=== PATIENT | female | born 1975 | race Caucasian/White ===

== ENCOUNTER 2017-03-14 07:16 | Day surgery (SDC) | payer BC, OTHER ==
[2017-03-11 12:33] VITALS: BMI 28.7
[2017-03-14] MEDS ORDERED: MIDAZOLAM HCL 2 MG/2 ML SINGLE DOSE VIAL ONE (09:11)
[2017-03-14] MEDS ORDERED: PROPOFOL 20 ML ONE (09:22)
[2017-03-14] MEDS ORDERED: DEXAMETHASONE SOD PHOSPHATE 4 MG/1 ML VIAL ONE (10:01)
[2017-03-14] MEDS ORDERED: ONDANSETRON 4 MG/2 ML VIAL ONE (10:01)
[2017-03-14] MEDS ORDERED: KETOROLAC TROMETHAMINE 30 MG/1 ML VIAL ONE (10:01)
[2017-03-14] MEDS ORDERED: oxyCODONE HCL 5 MG TABLET PO PRN (10:22)
[2017-03-14] MEDS ORDERED: LACTATED RINGERS SOLUTION 1,000 ML IV SCH ×2 (10:30)
[2017-03-14] MEDS ORDERED: IBUPROFEN 600 MG TABLET (FP) PO PRN (10:35)
[2017-03-14] MEDS ORDERED: ONDANSETRON 4 MG/2 ML VIAL IVPUSH PRN (10:48)
[2017-03-14] MEDS ORDERED: IBUPROFEN 600 MG TABLET (FP) PO ONE (11:14)
[2017-03-14 11:22] VITALS: TEMP 97.9
[2017-03-14] MEDS ORDERED: ACETAMINOPHEN 325 MG TABLET (FP) PO ONE (12:00)
[2017-03-14 12:01] VITALS: PULSE 80
[2017-03-14 12:35] VITALS: BP 135/76
--- NOTE | 2017-03-14 13:21 | OP ---
DATE OF OPERATION: 03/14/2017 PREOPERATIVE DIAGNOSIS: Endometrial polyp POSTOPERATIVE DIAGNOSIS: Normal endometrial cavity. PROCEDURE: Diagnostic hysteroscopy and a dilatation and curettage. COMPLICATIONS: None. SURGEON: Dr. Jj Villafana. PRINTING ROLLER POLISHER AND FELLOW: Dr. Kasper RESIDENT: Dr. Castañeda. ANESTHESIA: General. FLUID DEFICIT: Normal saline, 250 mL. URINE OUTPUT: 600. PROCEDURE FOLLOWS: Patient was taken to the operating room where general anesthesia was found to be adequate. She was placed in dorsal lithotomy position, prepped and draped in a normal sterile fashion. A pelvic examination revealed an anteverted uterus. A Ahmadi catheter was inserted. A speculum was then inserted, and the anterior lip of the cervix was grasped with a single-tooth tenaculum. The cervix was then entered visually using a diagnostic hysteroscope. Careful inspection of the cavity revealed normal endometrial findings, potentially some thickened folds of the endometrium posteriorly. No discrete polyps seen. The scope was then removed. We proceeded with sharp curettage. The products were sent for pathology. Of note, there was some endometrium that appeared to be slightly injected, as well, and thus, we requested that CD 138 were sent with pathology to rule out endometritis. All sponge, lap, and instrument counts were correct x2, and the patient was taken to the recovery room in stable condition. This operative note was completed by Dr. Godwin. JJ VILLAFANA M.D. [id number]
--- NOTE | 2017-03-18 16:08 | PATH ---
Surgical Pathology Report Patient Name: JENNIFER BAKER [facility]. Rec. #: [id number] /Age/Gender: 1975 (Age: 41) / F Account: [id number] Location: [facility] AMBULATORY Taken: 03/14/2017 Received: 03/14/2017 Reported: 03/18/2017 Physicians: Jj Villafana M.D. Specimen(s) Received ENDOMETRIAL CURETTINGS Clinical History Endometrial polyp on saline infusion No specific isolated polyp identified or visualized. Thick folds of endometrium noted. Fundal area indurated with vessels. Final Diagnosis ENDOMETRIUM, CURETTAGE: POLYPOID FRAGMENTS OF SECRETORY ENDOMETRIUM. NO EVIDENCE OF ENDOMETRITIS. (SEE NOTE) Note: CD138 immunostain performed at [place], [place] ([id number]) and interpreted at [facility] shows no increase in stromal plasma cells. This finding supports the diagnosis. Electronically Signed Prachi Barraza M.D. Gross Description Received in formalin labeled "endometrial curettings," is a 1.5 x 1.3 x 0.3 cm aggregate of beavers soft tissue fragments admixed with mucus. The formalin is filtered and the specimen is entirely submitted in one cassette. 03/14/201703/14/2017
== END 2017-03-14 12:30 | disposition home or self-care (01) ==
LOC: FASU 07:16
PROVIDERS: ATTEND Obstetrics & Gynecology Reproductive Endocrinology
PROC: 0UDB8ZX Extraction of Endometrium, Via Natural or Artificial Opening Endoscopic, Diagnostic (ICD-10-PCS; principal; 2017-03-14 09:46)
DX: Z03.89 Encounter for observation for other suspected diseases and conditions ruled out (principal)
CPT/HCPCS: 84703; 88305-TC; 94760